=== PATIENT | female | born 1995 | race Caucasian/White ===

== ENCOUNTER 2016-12-22 18:51 | Emergency (ER) | payer MEDICARE, OTHER ==
[~2016-12-22 18:51] MED LIST: ASTEPRO205.5 MCG/; CELEXA PO; CLARITIN10 M3 PO; FAMOTIDINE PO; KEPPRA500 M1 PO; MACROBID100 M1 PO; NO MEDICATIONS; PEPCID AC20 M2 PO; PRENATAL1 TA1 PO; PYRIDIUM100 MG PO; SILVADENE TOP; VOLTAREN50 MG PO; VOLTAREN75 MG PO; ZITHROMAX PO; ZOFRAN PO; ZYPREXA10 MG PO
== END 2016-12-22 19:40 | disposition left against medical advice (07) ==
LOC: SED 18:51
DX: Z53.21 Procedure and treatment not carried out due to patient leaving prior to being seen by health care provider (principal)